=== PATIENT | female | born 1970 | race Caucasian/White ===

== ENCOUNTER → 2020-09-19 17:25 | Outpatient (CLI) | payer BC, SELFPAY ==
--- NOTE | ~2020-09-19 | MM_ITS ---
EXAMINATION: MM screening [facility] BI w marielle HISTORY: Screening TECHNIQUE: Craniocaudal and mediolateral oblique 3-D tomosynthesis images were obtained and synthetic 2-D images were generated. CAD analysis was submitted and interpreted. COMPARISON: Comparison to multiple prior studies sequentially, with oldest reviewed study dated 05/20. BREAST PARENCHYMAL COMPOSITION: There are scattered areas of fibroglandular density. FINDINGS: Stable bilateral asymmetries and calcifications. There is no evidence of suspicious mass, c alcification, or architectural distortion to suggest malignancy in either breast. There has been no s uspicious interval change. IMPRESSION: 1. No mammographic evidence of malignancy. 2. Recommend routine screening mammography in one year. BI-RADS Category 1: Negative Reviewed, dictated and finalized at location A. [employer] CONSULTANT
== END ==
DX: Z12.31 Encounter for screening mammogram for malignant neoplasm of breast (principal)
CPT/HCPCS: 77063; 77067

== ENCOUNTER 2020-10-09 13:49 | Outpatient (RCR) | payer BC, SELFPAY ==
--- NOTE | 2020-10-09 15:14 | PTOPEVAL ---
PHYSICAL THERAPY EVALUATION AND PLAN OF CARE 10-09-20 Thank you for referring Sruthi Ribera to [facility].? Sruthi has improved since the injection, with less shoulder pain and full ROM. A home exercise program and posture education were completed today. Ms. Ribera is to call if she has any further questions, or to make an apointment, if additional therapy is needed, 0-2 x/week for 4 weeks. Please review, sign, date and return this plan of care KALINA. I agree with and certify that the following plan of care is medically necessary. Referring Physician Date Referring Provider: Jos Odell MD PT Outpatient Evaluation Document 10/09/20 14:05 SWPANA (Rec: 10/09/20 15:14 SWAPNA [id number]) Outpatient Past Medical History Past Medical History Source of Past Medical History Patient Neurological History Hx Neurological Disorders No Significant History Cardiovascular History Hx Hypercholesterolemia Yes: meds control Hx Hypertension Yes: meds control Respiratory History Hx Respiratory Disorders No Significant History Gastrointestinal History Hx Gastrointestinal Disorders No Significant History Genitourinary History Hx Genitourinary Disorders No Significant History Musculoskeletal History Hx Other Musculoskeletal Disorders Yes: R hand trigger finger- injection few wk ago eased Hematological History Hx Hematological Disorders No Significant History Endocrine History Hx Diabetes Yes: meds Hx Hypothyroidism Yes: meds HEENT History Hx HEENT Disorders No Significant History Integumentary History Hx Skin Disorders No Significant History Other History Hx Other Medical Conditions Yes: obesity Evaluation Information Problem Diagnosis R shoulder rotator cuff/ impingement Onset Jun 12, 2020 Subjective Information slept wrong on shoulder, woke Query Text:As Reported By Patient/ up one AM with pain and did Family not get better; injection : helped decrease the pain in shoulder; recently also had injection into R finger for trigger finger; Diagnostic Tests X-Rays For This Problem Yes: A-C joint & GH joint OA; Previous Treatments Previous Treatments For This Problem not had any PT for shoulder Prior Level of Function Activity Level (Last 3 Months) Occupation desk work-- computer and phone work Hand Dominance Right Activity of Daily Living Ability Independent Indoor/Home Mobility Independent Community Mobility Independent Stairs Ability Independent Functional Cognition (Planning, Shopping I
--- NOTE | 2021-05-23 15:18 | PCPTNOTE ---
PHYSICAL THERAPY DISCHARGE 05-23-21 LATE ENTRY for September 2020 Attending Provider: Jos Odell MD Patient:Sruthi Ribera Date of :1970 Sruthi has not returned for any further treatments since the PT evaluation on 10/09/2020, therefore she will be discharged at this time. Thank you for referring this patient to [facility]. Please review, sign, date and return this discharge summary KALINA. I have been updated about the patient's current status and I agree with discharge from the above service at this time. Referring Physician Date
== END 2020-12-31 10:16 | disposition home or self-care (01) ==
LOC: ANHPT 13:49
PROVIDERS: PCP Family Medicine; Referring Provider Orthopaedic Surgery; Visit Provider Orthopaedic Surgery
DX: M75.41 Impingement syndrome of right shoulder (principal)
CPT/HCPCS: 97161

== ENCOUNTER 2021-09-30 16:33 | Outpatient (CLI) | payer BC, SELFPAY ==
--- NOTE | ~2021-09-30 | MM_ITS ---
EXAMINATION: MM screening [facility] BI w marielle HISTORY: Screening mammogram TECHNIQUE: Craniocaudal and mediolateral oblique 3-D tomosynthesis images were obtained and synthetic 2-D images were generated. CAD analysis was submitted and interpreted. COMPARISON: 09/19/2020, 10/11/2018, 07/22/2017 BREAST PARENCHYMAL COMPOSITION: There are scattered areas of fibroglandular density. FINDINGS: Scattered benign-appearing calcifications are present. There is no suspicious mass, calcifi cation, or architectural distortion to suggest malignancy in either breast. There has been no suspici ous interval change. IMPRESSION: 1. No mammographic evidence of malignancy. 2. Recommend routine screening mammography in one year. BI-RADS Category 2: Benign finding(s). Reviewed, dictated and finalized at location A.
== END 2021-09-30 16:34 | disposition home or self-care (01) ==
PROVIDERS: PCP Family Medicine
DX: Z12.31 Encounter for screening mammogram for malignant neoplasm of breast (principal)
CPT/HCPCS: 77063; 77067

== ENCOUNTER 2022-06-15 01:09 | Day surgery (SDC) | payer BC, SELFPAY ==
[2022-06-08 09:17] VITALS: BMI 35.6
--- NOTE | 2022-06-08 09:25 | PC.NURSE ---
Report to the Outpatient Waiting Room, entrance under the green pavilion located off [facility], at time _1130_ on date _06/15/22_. Planned Procedure TimE 1330_. Time changes happen often and if your time is changed the preop area will call you the afternoon before. - You and your visitor will be asked to self-screen and do not enter if you have any COVID symptoms. - Only one visitor is requested with a max of two and NO children visitors are allowed at this time. - The patient visitor may be requested to leave or wait in car when not with patient due to distancing restrictions. - A mask is optional within the hospital. Patients may have clear liquids (water, carbonated beverages, clear teas, apple juice) until 3 hours prior to surgery with a maximum of 20 ounces. - No food from midnight until time of surgery - Infants may have breast milk until 4 hours before surgery, formula 6 hours prior to surgery. - Children will be allowed to drink immediately following surgery. If applicable, please bring a bottle or sippy cup to assist with drinking. Juice, water, soda, and popsicles are readily available. For infants on formula, please bring formula the day of surgery. Pacifiers are allowed. Take the following medications with a SIP of water the morning of surgery: __LEVOTHYROXINE Medications to discontinue per physician VITAMIN D Date to take last dose 06/08/22 Please no make-up, nail persian, hairspray, perfume, deodorant, or body powder the day of surgery. No jewelry (including any body piercings) or valuables the day of surgery, leave them at home. Please take a shower or bath the night before, or the morning of, surgery with an antibacterial soap. Wear comfortable, loose fitting clothing. Children are encouraged to wear pajamas. - Jewelry must be removed prior to entering the operating room. Rings and piercings that are not removed may be cut off. - The hospital will not accept responsibility for valuables. - Please leave all valuables, including medications, at home the day of surgery. If you are going home after surgery, a licensed tilt tray driver must drive you home. - NO public transportation without another adult if you receive anesthesia. - We recommend that an adult stay with you for 24 hours following discharge. - We also recommend that you do not drive, make important decision, drink alcoholic beverages, or take any drugs that were not prescribed by your health care provider for at least 24 hours after your discharge time. For Pediatric surgeries, we recommend two adults accompany the child home. Follow any additional instructions given to you from your surgeon. If you or anyone in your household have experienced Covid symptoms in the past week, please notify your surgeon or the nurse liaison at the phone number below for possible testing. Telephone instructions given to _SELVIN__and asked if any additional questions and then verbalized understanding. Patient advised to call surgeon office or pre surgery nurse liaison [phone] if any additional questions.
--- NOTE | 2022-06-13 11:14 | P.PNAN_ITS ---
Anes - Initial Pre Proc Eval Procedure: Operation Date: 06/15/22 07:30 Proposed Procedures p Right Third and Left Fourth Trigger Finger Release - Jos Odell MD Date/Time: 06/13/22 11:14 Surgeon: Jos Odell MD Pre Op Diagnosis: right 3rd and left 4th trigger fingers Patient Data Age: 51 Gender: F Height: 1.5 m Weight: 80 kg Allergies Allergy/AdvReac Type Severity Reaction Status Date / Time No Known Allergies Allergy Verified 06/15/22 06:10 Home Medications Medication Instructions Recorded Confirmed Type ergocalciferol (vitamin D2) 1,250 1,250 mcg PO WEEKLY #14 caps 10/13/21 06/15/22 Rx mcg (50,000 unit) capsule (Vitamin D2) simvastatin 10 mg tablet 10 mg PO QHS #90 tabs 10/13/21 06/15/22 Rx lamotrigine 200 mg tablet 400 mg PO QHS #180 tabs 11/24/21 06/15/22 Rx quetiapine 300 mg tablet 300 mg PO QHS #90 tabs 03/09/22 06/15/22 Rx levothyroxine 50 mcg tablet 50 mcg PO DAILY #90 tabs 05/12/22 06/15/22 Rx Patient hx anesthesia problems: none Family hx anesthesia problems: none Results Review: All pre-operative results and documents have been reviewed as part of the pre- operative evaluation. [facility] Past Medical History Medical History (Updated 06/13/22 @ 11:15 by Rich Howard MD) Bipolar depression Dyslipidemia Essential (primary) hypertension Hypothyroidism (acquired) Left wrist tendinitis sixth dorsal compartment Obesity Subacromial impingement of right shoulder Trigger finger, left ring finger Trigger finger, right middle finger Type 2 diabetes mellitus without complications Last hemoglobin A1c 5.21 September 2020 Surgical History Surgical History History of dilatation and curettage (~2015) Family History Family History Other Family history of coronary artery disease Hypertension Social History Social History Smoking packs per day: 2 Smoking cigarettes per day: 40.0 Years smoked: 15 Smoking pack-years: 30.00 Smoking status: Former smoker Tobacco type: cigarettes Smoking end date: 07/19/04 Additional smoking assessment comments: STOPPED IN 2003 Alcohol intake: current Alcohol use details: once a month Substance use: never Substance use type: does not use Living arrangements: alone Anes - Eval Final PreProcedure Day of Procedure 06/13/22 11:14 Patient weight: obese Heart: regular rate and rhythm Lungs: clear to auscultation and normal air movement Airway: Mallampati scale class II Neurological: alert and oriented Last oral intake: >/= 8 hours ASA classification: III Emergent: no Anesthetic plan: proceed Anesthesia type and monitoring: general GIVS Results Review: All pre-operative results and documents have been reviewed as part of the pre- operative evaluation. Informed Consent: The patient's anesthetic plan and its attendant risks and benefits were discussed with the patient/family/POA. Questions were solicited and answers provided to the satisfaction of the patient/family/POA.
[2022-06-15] MEDS: ACETAMINOPHEN 500 MG TABLET 1000 MG PO (06:14)
[2022-06-15] MEDS: LACTATED RINGERS 1,000 ML 30 ML IV CONT (06:56)
[2022-06-15] MEDS: KETOROLAC 15 MG/ML VIAL (*BKC) IV PUSH (06:57)
[2022-06-15 07:05] VITALS: BP 132/73; PULSE 82; RESP 16; TEMP 36.4; O2SAT 99
--- NOTE | 2022-06-15 07:18 | WPDHPUPDATE1 ---
History and Physical Update Update Date/Time: 06/15/22 07:18 History and Physical has been reviewed, including an updated exam of the patient. There are NO changes in the patient's condition. Risks, benefits, and alternatives have been discussed and questions answered. Patient agrees to proceed with procedure.
[2022-06-15 08:18] VITALS: BP 119/63; PULSE 75; RESP 14; O2SAT 100
--- NOTE | 2022-06-15 08:27 | W.PM.PROC2 ---
Procedure Note - Detailed Date of Procedure 06/15/22 Pre-op Diagnosis right 3rd and left 4th trigger fingers Post-op Diagnosis Same Procedure Performed Right third and left fourth trigger finger releases Surgeon Jos Odell MD Front Elevator Operator Mae Silver Anesthesia MAC and Local Description of Procedure The patient was identified and proper sites identified. She was taken to the operating room and transferred to the OR table placing supine taking care to pad the torso and extremities. IV sedation was administered. An Esmarch bandage was used as a distal forearm tourniquet on both sides. Several cc of .25 % plain Marcaine was injected into the subcutaneous tissue over the A1 osiel of the right third and left fourth digits. The right upper extremity was exsanguinated and the Esmarch left in place for approximately 7 minutes. A longitudinal incision was made over the A1 osiel. Subcutaneous tissue was bluntly dissected down to the osiel while protecting the neurovascular bundles. The A1 osiel was identified and then transected longitudinally in line with the incision and tendons. The tendons were delivered into the wound verifying the adequacy of the release. Esmarch was released. Hemostasis was carried out. The wound was irrigated with sterile saline. Skin edges were reapproximated with 4-0 nylon suture. Sterile dressing was applied. Tourniquet was released. The exact same procedure was carried out on the left side over the fourth digit A1 osiel. Esmarch was in place for 5 minutes on the left side. She tolerated the procedure well and was transferred back to a cart, then taken to the recovery area in stable condition. There were no known intraoperative complications. Estimated blood loss was negligible. Perioperative antibiotics were administered. Estimated Blood Loss 5 Tourniquet Time 12 (7 minutes on the right side, 5 minutes on the left side.) Drains No Packing No Pathology None sent Complications No immediate complications Condition Stable Disposition PACU
[2022-06-15 08:45] VITALS: BP 123/73; PULSE 71
[2022-06-15 09:10] LABS: Glucose Point of Care 86 mg/dl (65-105)
[2022-06-15 09:15] VITALS: BP 138/73; PULSE 70
== END 2022-06-15 09:42 | disposition home or self-care (01) ==
PROVIDERS: PCP Family Medicine; Visit Provider Orthopaedic Surgery
PROC: (CPT 26055; principal; 2022-06-15 07:30)
DX: M65.331 Trigger finger, right middle finger (principal); M65.342 Trigger finger, left ring finger; I10 Essential (primary) hypertension; E03.9 Hypothyroidism, unspecified; E78.5 Hyperlipidemia, unspecified; E11.9 Type 2 diabetes mellitus without complications; F31.9 Bipolar disorder, unspecified; E66.9 Obesity, unspecified; Z68.36 Body mass index [BMI] 36.0-36.9, adult; Z87.891 Personal history of nicotine dependence
CPT/HCPCS: 26055 ×2; 82948; A9270; J1885; J2250; J2405; J2704; J3010; J7120

== ENCOUNTER 2023-10-22 13:38 | Outpatient (CLI) | payer BC, SELFPAY ==
--- NOTE | ~2023-10-22 | MM_ITS ---
EXAMINATION: MM screening [facility] BI w marielle HISTORY: Screening mammogram TECHNIQUE: Craniocaudal and mediolateral oblique 3-D tomosynthesis images were obtained and synthetic 2-D images were generated. CAD analysis was submitted and interpreted. COMPARISON: 09/28/2021, 09/2020 bilateral screening mammogram examinations BREAST PARENCHYMAL COMPOSITION: There are scattered areas of fibroglandular density. FINDINGS: Focal asymmetry and suggested architectural distortion is noted in the outer posterior left breast, best demonstrated on craniocaudal projection. Diagnostic left mammogram and left breast ultr asound examination are recommended. Otherwise no suspicious mass, architectural distortion, malignant calcification, skin thickening or r etraction or significant new or developing density of either breast is noted. Scattered bilateral evens ign calcifications. IMPRESSION: 1. Focal asymmetry/architectural distortion is suggested in the outer posterior left breast 2. Diagnostic left mammogram and left breast ultrasound examination are recommended BI-RADS Category 0: Incomplete: Needs additional imaging evaluation. Reviewed, dictated and finalized at location A. IMPRESSION: 1. Focal asymmetry/architectural distortion is suggested in the outer posterior left breast 2. Diagnostic left mammogram and left breast ultrasound examination are recomme nded BI-RADS Category 0: Incomplete: Needs additional imaging evaluation.
== END 2023-10-22 13:39 | disposition home or self-care (01) ==
LOC: ANHIMG 13:44
PROVIDERS: PCP Family Medicine
DX: Z12.31 Encounter for screening mammogram for malignant neoplasm of breast (principal)
CPT/HCPCS: 77063; 77067

== ENCOUNTER 2023-11-22 08:13 | Outpatient (CLI) | payer BC, SELFPAY ==
--- NOTE | ~2023-11-22 | MMUS_ITS ---
EXAMINATION: MM diagnostic valente LT w marielle, US breast LT limited HISTORY: Focal asymmetry/architectural distortion suggested in the outer posterior left breast on Oct screening mammogram TECHNIQUE: Additional 3-D tomosynthesis images of the left breast were performed and synthetic 2-D im ages were generated. CAD analysis was submitted and interpreted. High resolution upper and lower oute r quadrants and left subareolar breast ultrasound examination was performed. COMPARISON: Xeromammogram examinations dating back to 10/11/2018 FINDINGS: MAMMOGRAPHIC FINDINGS: Stable circumscribed in the subareolar area since 2019. Question of focal architectural distortion in the posterior outer left breast on CC projection. ULTRASOUND: 6.2 x 17.6 x 18.4 circumscribed hypoechoic lesion in the 1:00 subareolar area. Patient reports this h as been previously biopsied and was benign. This has relatively low density on mammography and circum scribed margins on mammography and ultrasound examination. No color flow signal is noted as well. How ever, there is mild posterior shadowing and the lesion has increased in size compared to 09/19/2020 but is relatively stable since 09/30/2021. Six-month diagnostic mammogram and left breast ultrasound foll ow-up are recommended. 5 x 8 x 10 mm cyst is noted in the subareolar area. No suspicious mass or shadowing is noted otherwise. IMPRESSION: 1. Probable benign findings 2. Six-month diagnostic bilateral mammogram and left breast ultrasound follow-up are recommended. BI-RADS category 3, probably benign findings. Reviewed, dictated and finalized at location A. IMPRESSION: 1. Probable benign findings 2. Six-month diagnostic bilateral mammogram and left breast ultrasound follow- up are recommended. BI-RADS category 3, probably benign findings.
== END 2023-11-22 08:14 ==
LOC: MICIMG 08:16
DX: R92.8 Other abnormal and inconclusive findings on diagnostic imaging of breast (principal)
CPT/HCPCS: 76642; 77061; 77065; G0279

== ENCOUNTER 2024-03-25 10:50 | Emergency (ER) | payer BC, SELFPAY ==
--- NOTE | ~2024-03-25 | XR_ITS ---
EXAMINATION: XR knee LT min 4V DATE: 03/25/2024 11:26 INDICATION: Left knee pain. TECHNIQUE: 4 views of left knee were obtained. COMPARISON: None. FINDINGS: There is lateral subluxation versus dislocation of patella. No fracture. There is mild oste oarthritis of medial and lateral compartments. No knee joint effusion. IMPRESSION: 1. Lateral subluxation versus dislocation of patella. 2. Mild left knee osteoarthritis. Reviewed, dictated and finalized at location A.
--- NOTE | 2024-03-25 10:53 | ED.LOWEXIN ---
HPI - Extremity Injury (Lower) General Chief Complaint: Extremity Injury, Lower Stated Complaint: L KNEE PAIN Time Seen by Provider: 03/25/24 11:07 Source: patient, RN notes reviewed and old records reviewed Mode of arrival: ambulatory Limitations: no limitations History of Present Illness HPI Narrative: 53-year-old female presents to the [facility] with left knee pain. Patient reports that she was walking downstairs when she felt a pop in her knee. No swelling, bruising noted. Tenderness posterior knee Knee injury at age 13, patella probable dislocation Onset (ago): day(s) (1) Related Data Allergies Allergy/AdvReac Type Severity Reaction Status Date / Time No Known Allergies Allergy Verified 03/25/24 10:56 Review of Systems Review of Systems: All systems reviewed & are unremarkable except as noted in HPI and below Constitutional: Constitutional: Reports no additional constitutional complaints Eyes: Eyes: Reports no additional eye complaints ENT: Reports system reviewed and no additional complaints, except as documented Cardiovascular: Cardiovascular: Reports no additional cardiovascular complaints, Denies chest pain and Denies dyspnea Respiratory: Respiratory: Reports no additional respiratory complaints, Denies chest congestion, Denies cough and Denies dyspnea Gastrointestinal: Gastrointestinal: Reports no additional gastrointestinal complaints, Denies abdominal pain, Denies nausea and Denies vomiting Musculoskeletal: Musculoskeletal: Reports as per HPI and Reports arthralgias (Left knee) Integumentary/Breasts: Skin/Breast: Reports system reviewed and no additional complaints, except as docu Neurologic: Reports system reviewed and no additional complaints, except as documented Psychiatric: Psychiatric: Reports no additional psychiatric complaints Allergic/Immunologic: Allergic/Immunologic: Reports no additional allergic/immunologic complaints PMFSH Past Medical History Medical History Bipolar depression Dyslipidemia Essential (primary) hypertension Hypothyroidism (acquired) Left wrist tendinitis sixth dorsal compartment Obesity Subacromial impingement of right shoulder Type 2 diabetes mellitus without complications Last hemoglobin A1c 5.21 September 2020 Vitamin D deficiency Surgical History Surgical History History of dilatation and curettage (~2015) Trigger finger, left ring finger (~05/2022) Left fourth trigger finger release June 15, 2022 Trigger finger, right middle finger (~05/2022) Right third trigger finger release June 15, 2022 Family History Family History Other Family history of coronary artery disease Hypertension Social History Social History Smoking packs per day: 2 Smoking cigarettes per day: 40.0 Years smoked: 15 Smoking pack-years: 30.00 Smoking status: Former smoker Tobacco type: cigarettes Smoking end date: 09/16/03 Additional smoking assessment comments: STOPPED IN 2003 Alcohol intake: current Alcohol use details: once a month Substance use: never Substance use type: does not use Lack of Transportation: No Lack of Food: Never True Current Housing: I Have Housing Concerned About Future Housing: No Difficulty Paying Gas/Electric Bills: No Difficulty Paying for Meds: No Currently Unemployed: No Education: Bachelor's Degree Difficulty w/ Childcare or Family Care: No Living arrangements: alone Occupation/Education: occupation Gender identity (if verbalized by the patient): Female Agree to blood products: Yes Comments At the time of my signature, I reviewed and agree with the nursing past medical, surgical, social, and family history. There is no relevant family history pertinent to the patient compla
[2024-03-25 11:01] VITALS: BP 117/75; PULSE 90; RESP 16; TEMP 36.5; O2SAT 100
== END 2024-03-25 11:57 | disposition home or self-care (01) ==
PROVIDERS: Emergency Provider Nurse Practitioner; PCP Family Medicine
DX: S83.002A Unspecified subluxation of left patella, initial encounter (principal); X58.XXXA Exposure to other specified factors, initial encounter; M17.12 Unilateral primary osteoarthritis, left knee; Z87.891 Personal history of nicotine dependence; I10 Essential (primary) hypertension; E03.9 Hypothyroidism, unspecified; E11.9 Type 2 diabetes mellitus without complications
CPT/HCPCS: 73564; 99213; G0463

== ENCOUNTER 2024-06-07 07:57 | Outpatient (CLI) | payer BC, SELFPAY ==
--- NOTE | ~2024-06-07 | DEXA_ITS ---
Bone Density Report Name: FELIPE COBIAN Age: 53 Sex: Female Ethnicity: White Date of : 1970 Indication: postmenopausal; screening for osteoporosis; Referring Provider: ALTAF ROMANO Study: Bone densitometry was performed. Exam Date: June 07, 2024 Accession number: [id number] Bone Density: Region BMD T-score Z-score Classification AP Spine(L1-L4) 1.080 0.3 1.4 Normal Femoral Neck (Left) 0.809 -0.4 0.7 Normal Total Hip (Left) 1.093 1.2 2.0 Normal Femoral Neck (Right) 0.796 -0.5 0.6 Normal Total Hip (Right) 0.997 0.4 1.2 Normal Total Hip Mean 1.045 0.8 1.6 Normal World Health Organization criteria for BMD impression classify patients as: Normal (T-score at or above -1.0), Osteopenia (T-score between -1.0 and -2.5), or Osteoporosis (T-score at or below -2.5). 10-year Fracture Risk: FRAX not reported because: All T-scores for Spine Total, Hip Total, Femoral Neck at or above -1.0 Clinical Information Provided by Patient: Has the following medical conditions: hypothyroid Patient maximum height was 60.0 Does not regularly consume dairy products Drinks caffeinated beverages Onset of menses at age 9 Number of children 0 Impression: The patient has normal bone mass. Discussion: BONE DENSITY IS ABOVE THE MINIMUM DESIRABLE LEVEL AT ALL SKELETAL SITES TESTED. This patient?s bone mineral density is above the minimum desirable level (T-score -1.0 or better) at all sites measured. The patient should follow a healthful lifestyle (good nutrition with adequate calcium and vitamin D, and appropriate weight-bearing exercise). Follow-Up: Consider repeating this study in 5 years or sooner if there is some new clinical indication. Reported by: ARTIE on 06/07/2024 8:26:00 AM. Reviewed, dictated and finalized at location ABenji ART
== END 2024-06-07 07:58 | disposition home or self-care (01) ==
LOC: ANHIMG 07:58
PROVIDERS: PCP Family Medicine; Visit Provider Family Medicine
DX: Z78.0 Asymptomatic menopausal state (principal); Z13.820 Encounter for screening for osteoporosis
CPT/HCPCS: 77080

== ENCOUNTER 2024-06-12 07:59 | Outpatient (CLI) | payer BC, SELFPAY ==
--- NOTE | ~2024-06-12 | MMUS_ITS ---
EXAMINATION: MM diagnostic valente LT w marielle, US breast LT limited HISTORY: Follow-up left breast mass TECHNIQUE: Additional 3-D tomosynthesis images of the left breast were performed and synthetic 2-D im ages were generated. CAD analysis was submitted and interpreted. High resolution Limited left breast ultrasound was performed. COMPARISON: Comparison to multiple prior studies sequentially, with oldest reviewed study dated 10/2017. BREAST PARENCHYMAL COMPOSITION: Not dense: There are scattered areas of fibroglandular density. FINDINGS: MAMMOGRAPHIC FINDINGS: There is a mass in the upper outer quadrant of the left breast anteriorly which appears to contain in ternal fat, likely benign. There are no suspicious calcifications or architectural distortion. ULTRASOUND: Limited left breast ultrasound: At 1:00 in the periareolar location of the left breast there is an ov al circumscribed parallel oriented hypoechoic mass measuring 1.9 x 1.8 x 0.6 cm compared with 1.8 x 1 .8 x 0.6 cm on prior examination. There is posterior shadowing and no significant posterior features. Mildly prominent ducts noted in the periareolar location. IMPRESSION: 1. Stable likely benign left breast mass at 1:00 in the periareolar location measuring 1.9 cm. 2. Recommend 6 month follow-up Limited left breast ultrasound BI-RADS category 3, probably benign findings. Reviewed, dictated and finalized at location [] [employer] IMPRESSION: 1. Stable likely benign left breast mass at 1:00 in the periareolar location me asuring 1.9 cm. 2. Recommend 6 month follow-up Limited left breast ultrasound BI-RADS category 3, probably benign findings.
== END 2024-06-12 08:00 | disposition home or self-care (01) ==
PROVIDERS: PCP Family Medicine
DX: R92.8 Other abnormal and inconclusive findings on diagnostic imaging of breast (principal); N63.21 Unspecified lump in the left breast, upper outer quadrant
CPT/HCPCS: 76642; 77061; 77065; G0279

== ENCOUNTER 2024-12-07 07:32 | Outpatient (CLI) | payer BC, SELFPAY ==
--- NOTE | ~2024-12-07 | MMUS_ITS ---
EXAMINATION: MM diagnostic valente BI w marielle, US breast LT limited HISTORY: Follow-up left breast mass TECHNIQUE: Additional 3-D tomosynthesis images of the breasts were performed and synthetic 2-D images were generated. CAD analysis was submitted and interpreted. High resolution Limited left breast ultr asound was performed. COMPARISON: Comparison to multiple prior studies sequentially, with oldest reviewed study dated 12/2023. BREAST PARENCHYMAL COMPOSITION: Not dense: There are scattered areas of fibroglandular density. FINDINGS: MAMMOGRAPHIC FINDINGS: There is a stable lobulated fat-containing mass in the upper outer quadrant of the left breast, anter ior third. No new masses, calcifications or architectural distortion in either breast to suggest jonathan gnancy. There are benign bilateral breast calcifications. ULTRASOUND: Limited left breast ultrasound: At 1:00, 1 cm from the nipple there is a circumscribed parallel orien blaise hypoechoic mass measuring 1.8 x 1.3 x 0.7 cm with subtle posterior shadowing and no internal vasc ularity. This mass compares with 1.8 x 1.9 x 0.6 cm on prior examination, without significant change allowing for technique. IMPRESSION: 1. Stable likely benign left breast mass. No evidence for malignancy in the right breast. 2. Given one year of interval stability, recommend 12 month followup bilateral screening mammogram an d Limited left breast ultrasound. BI-RADS category 3, probably benign findings. Reviewed, dictated and finalized at location [] IMPRESSION: 1. Stable likely benign left breast mass. No evidence for malignancy in the rig ht breast. 2. Given one year of interval stability, recommend 12 month followup bilateral screening mammogram and Limited left breast ultrasound. BI-RADS category 3, probably benign findings.
== END 2024-12-07 07:33 | disposition home or self-care (01) ==
LOC: MICIMG 07:33
PROVIDERS: PCP Family Medicine
DX: R92.8 Other abnormal and inconclusive findings on diagnostic imaging of breast (principal); N63.21 Unspecified lump in the left breast, upper outer quadrant
CPT/HCPCS: 76642; 77062; 77066; G0279